=== PATIENT | female | born 1960 | race Caucasian/White ===

== ENCOUNTER 2023-12-17 13:19 | Day surgery (SDC) | payer OTHER ==
[2023-12-17] MEDS ORDERED: BUPIVACAINE 0.5% VIAL IJ ONE (13:20)
[2023-12-17] MEDS ORDERED: Depo-Medrol 40 MG/ML IM ONE (13:20)
[2023-12-17] MEDS ORDERED: LIDOCAINE HCL 1% 50 MG/5 ML VL PF IJ ONE (13:20)
--- NOTE | 2023-12-17 16:40 | XRAY ---
Indication: Left shoulder and subacromial bursa injection. Intraoperative fluoroscopy provided for 16 seconds. 2 digital spot images submitted for interpretation demonstrates needle tip projecting over left glenohumeral joint superiorly. Second needle tip subacromial. Small amount of contrast injected for needle tip placement. Correlate with intraoperative findings/report.
--- NOTE | 2023-12-17 17:17 | XRAY ---
16 seconds of fluoroscopy was used in surgery for a left intra-articular shoulder and subacromial bursa injection.
== END 2023-12-17 15:00 | disposition home or self-care (01) ==
LOC: SDC-PAIN 13:19
PROVIDERS: ATTEND Psychiatry & Neurology Pain Medicine
DX: M19.012 Primary osteoarthritis, left shoulder (principal); M75.52 Bursitis of left shoulder
CPT/HCPCS: 20610; 73030; 77002; J2001; Q9966

== ENCOUNTER 2024-08-12 10:47 | Day surgery (SDC) | payer OTHER ==
[2024-08-12] MEDS ORDERED: Sodium Chloride 0.9(Preservative Free) 10 ML IJ ONE (10:48)
[2024-08-12] MEDS ORDERED: dexAMETHasone sodium phosphate IJ ONE (10:48)
[2024-08-12] MEDS ORDERED: propofoL IV ONE (13:21)
--- NOTE | 2024-08-12 14:20 | XRAY ---
Indication: Left L4-S1 transforaminal HUEY. Intraoperative fluoroscopy provided for 21 seconds. 4 digital spot images submitted for interpretation demonstrates posterior needle tips projecting over expected left L4 and L5 nerve roots. Small amount of contrast injected for needle tip placement. Correlate with intraoperative findings/report.
--- NOTE | 2024-08-12 14:52 | XRAY ---
21 seconds of fluoroscopy was used in surgery for a left L4-S1 transforaminal HUEY.
== END 2024-08-12 13:55 | disposition home or self-care (01) ==
LOC: SDC-PAIN 10:47
PROVIDERS: ATTEND Psychiatry & Neurology Pain Medicine
DX: M54.16 Radiculopathy, lumbar region (principal)
CPT/HCPCS: 64483; 64484; 72100; 77003; J1100; J2704; Q9966